=== PATIENT | female | born 1970 | race Caucasian/White ===

== ENCOUNTER 2018-07-10 19:45 | Outpatient (CLI) | payer BC ==
--- NOTE | 2018-07-11 01:50 | Ultrasound Report ---
Reason: CALF PAIN AND SWELLING, POS. FAMILY HISTORY OF DVT Procedure Date: 07/10/2018 Accession Number: [id number] / [id number] Procedure: US - Duplex Ext Veins Left CPT Code: FULL RESULT: EXAM: LEFT LOWER EXTREMITY VENOUS ULTRASOUND EXAM DATE: 07/10/2018 07:50 PM. CLINICAL HISTORY: CALF PAIN AND SWELLING, POS. FAMILY HISTORY OF DVT. COMPARISON: None. TECHNIQUE: Real-time sonographic vascular imaging was performed by the cementer machine joiner through the lower extremity utilizing both color-flow and Doppler spectral analysis. Multiple sales representative electric service static images were saved for review. FINDINGS: Common Femoral Vein (CFV): Normal. CFV-GSV Junction: Normal. Profunda Femoral Vein (PFV): Normal. Femoral Vein (FV) Prox: Normal. Femoral Vein (FV) Mid: Normal. Femoral Vein (FV) Dist: Normal. Popliteal Vein: Normal. Posterior Tibial Veins: Normal. Peroneal Veins: Normal. Contralateral Side CFV: Normal. Other: None. IMPRESSION: No evidence for deep venous thrombosis. [facility]
== END 2018-07-10 19:46 | disposition home or self-care (01) ==
LOC: DI 19:45
PROVIDERS: ATTEND Physician Assistant
DX: M79.662 Pain in left lower leg (principal)